=== PATIENT | female | born 1965 ===

== ENCOUNTER 2020-12-08 11:25 | Observation (INO) | payer OTHER, MEDICAID, SELFPAY ==
[2020-12-08] VITALS (7 sets, daily range): BP systolic 109–138; BP diastolic 71–83; PULSE 65–80; RESP 11–20; TEMP 36.4–37.1; O2SAT 96–100; BMI 21.4
--- NOTE | 2020-12-08 11:44 | DI.RAD.S_ITS ---
PROCEDURE: XR WRIST RT MIN 3V INDICATIONS: fall FOOSH/ +deformity TECHNIQUE: 4 views of the wrist were acquired. COMPARISON: Located Within [facility], CR, XR HAND RT MIN 3V, 12/08/2020, 11:46. FINDINGS: Bones: Intact surgical hardware in the distal radius from remote ORIF with no evidence of hardware failure or loosening. No fractures or dislocations. Old ulnar styloid avulsion No suspicious bony lesions. Scaphoid view: Scaphoid suboptimally visualized own scaphoid view. Grossly intact. Soft tissues: No suspicious soft tissue calcifications. IMPRESSION: 1. No evidence acute fracture or dislocation. 2. Scaphoid suboptimally visualized, grossly intact. 3. Intact surgical hardware. Dictated by: Wesley Chaney M.D. on 12/08/2020 at 11:21 Approved by: Wesley Chaney M.D. on 12/08/2020 at 11:23
--- NOTE | 2020-12-08 11:44 | DI.RAD.S_ITS ---
PROCEDURE: XR HAND RT MIN 3V INDICATIONS: fall FOOSH/ +deformity TECHNIQUE: 3 views of the hand(s) acquired. COMPARISON: None. FINDINGS: Bones: No fractures or dislocations. The superior aspect distal radial hardware is visualized. Carpal bones are normally aligned. No suspicious bony lesions. Soft tissues: No suspicious soft tissue calcifications. IMPRESSION: No evidence of acute fracture or dislocation of the right hand. Dictated by: Wesley Chaney M.D. on 12/08/2020 at 11:25 Approved by: Wesley Chaney M.D. on 12/08/2020 at 11:25
--- NOTE | 2020-12-08 11:44 | DI.RAD.S_ITS ---
PROCEDURE: XR WRIST LT MIN 3V INDICATIONS: fall FOOSH/ +deformity TECHNIQUE: 3 views of the wrist were acquired. COMPARISON: None. FINDINGS: Bones: Markedly comminuted distal radius fracture extending to the articular surface with dorsal angulation. Markedly comminuted distal ulnar fracture extending to the articular surface. No dislocation. No suspicious bony lesions. Soft tissues: No suspicious soft tissue calcifications. IMPRESSION: Markedly comminuted distal radius and ulna fractures extending to the articular surface. Dictated by: Wesley Chaney M.D. on 12/08/2020 at 11:23 Approved by: Wesley Chaney M.D. on 12/08/2020 at 11:24
--- NOTE | 2020-12-08 11:47 | PC.NURSE ---
Fall down 2 steps while taking something off a shelf. FOOSH with +deformity to L wrist with 1-2 cm superficial LAC to L wrist. cleaned and wrapped in triage. in shoulder sling. abrasions to R cheek and shoulder, mild swelling and pain to R hand. pending XR's given ice
[2020-12-08] MEDS: ACETAMINOPHEN 325 MG TABLET 975 MG PO (12:12)
--- NOTE | 2020-12-08 13:07 | ED.TRAUMA ---
HPI - Trauma General Chief Complaint: Extremity Injury, Upper Stated Complaint: Fall Time Seen by Provider: 12/08/20 13:07 Source: patient Mode of arrival: Ambulatory Limitations: no limitations History of Present Illness HPI narrative: This is a 55-year-old female comes emergency department after falling approximately 3 ft. Patient states she fell down words, she did scrape her face but denies any other head injury, neck or back pain. Patient has significant pain in her left wrist. She also has a as well as some mild bleeding. Patient states she has some discomfort in her right wrist but is able to use it and move it. She states it feels tight. She feels some pins and needle sensation in her left hand. Patient denies any other medical issues. No daily medications. She states she is unsure of her tetanus is up-to-date. Patient states she has fractured her left wrist in the past as well as had surgery on her left thumb. She has also had fracture and repair on her right wrist in the past. Patient denies any her symptoms currently. Related Data Previous Rx's Medication Instructions Recorded hydrocodone-acetaminophen 1 tab PO Q4-6H PRN #30 tab 12/08/20 sulfamethoxazole-trimethoprim 2 tab PO BID #10 tab 12/08/20 Allergies Allergy/AdvReac Type Severity Reaction Status Date / Time Penicillins Allergy Verified 12/08/20 11:43 Review of Systems Review of Systems ROS Unobtainable: All systems reviewed & are unremarkable except as noted in HPI and below Patient History Social History household members: significant other Smoking Status: Never smoker alcohol intake: never Exam Narrative Exam Narrative: GEN: Patient appears in mild distress. HEAD: No evidence of trauma, no raccoon/Moore sign. NECK: Nontender, painless range of motion, trachea midline Negative Nexus criteria, there is no line tenderness, distracting injury, altered mental status, neuro deficit, recent EtOH. EYES: PERRLA, EOMI ENT: External inspection normal except for abrasion on the right cheek, trachea is midline, TM's are normal no hemotypanum, Nares are clear, no septal hematoma, no dental or oral injury, airway is normal and with normal occlusion, No bony tenderness RESP: Chest is nontender and has symmetric movement, no ecchymosis, breath sounds are normal no crackles, wheezes or rales CVS: Heart sounds are normal, no murmur noted, No JVD. ABG/GI: Nontender, soft, normal bowel sounds, no distention, no organomegaly, pelvic rock is negative NEURO: Oriented AOx3, neuro is grossly intact, sensation and motor is normal all 4 extremities moving, cranial nerves II through XII are intact, GCS is 15 PSYCH: Normal mood and affect SKIN: Patient has a half to 1 cm laceration over radial side of nurse at the wrist there is no obvious bony exposure at this time there is some very mild bleeding that easily stopped with compression, warm and dry, no crepitus and without decubitus BACK: No CVA tenderness, no vertebral tenderness, no step-off's, no crepitus EXT: Patient has obvious deformity of her left wrist, she has cap refill less than 2 seconds with 2+ radial pulse. Right wrist patient has some mild discomfort but has full range of motion with no discrete bony tenderness on exam. No pedal edema, normal color and temperature, normal range of motion of extremities with normal tendon exam, 2+ pulses in all four extremities Initial Vital Signs Initial Vital Signs: Vital Signs Temperature 97.9 F 12/08/20 11:34 Pulse Rate 67 12/08/20 11:34 Respiratory Rate 16 12/08/20 11:34 Blood Pressure 113/74 12/08/20 11:34 Pulse Oximetry 96 12/08/20 11:34 Scores GCS [place] coma scale eye opening: Spontaneous Thomas coma scale verbal response: Orientated [place] coma scale motor response: Obey commands Thomas coma scale total score: 15 Course Orders Ordered: Discontinued Medications Acetaminophen (Acetaminophen 325 Mg Tablet) 975 mg PO NOW ONE Stop: 12/08/20 11:47 Last Admin: 12/08/20 12:12 Dose: 975 mg Documented by: PILAR Acetaminophen (Acetaminophen Susp 160 Mg/5 Ml Udc) 850 mg 15 mg/kg (850 mg) PO NOW ONE Stop: 12/08/20 15:09 Bupivacaine HCl (Bupivacaine 0.5% (Pf) Vial) 30 ml INJ NOW ONE Stop: 12/08/20 16:28 Last Admin: 12/08/20 16:27 Dose: 10 ml Documented by: MITCH Diphtheria/Tetanus/Acell Pertussis (Tet,Diph,Pertuss(Acell),Vac/Pf 0.5 Ml Syringe) 0.5 ml IM .ONCE ONE Stop: 12/08/20 13:18 Last Admin: 12/08/20 13:46 Dose: 0.5 ml Documented by: PILAR Fentanyl (Fentanyl 100 Mcg/2 Ml Inj) 0 mcg IV Q5M PRN PRN Reason: Pain, Moderate (4-6) Hydromorphone HCl (Hydromorphone 2 Mg Inj) 0 mg IV Q5M PRN PRN Reason: Pain, Severe (7-10) Vancomycin HCl (Vancomycin) 1,250 mg in 250 mls @ 250 mls/hr IV NOW ONE Stop: 12/08/20 14:17 Last Admin: 12/08/20 13:50 Dose: 250 mls/hr Documented by: PILAR Lactated Ringer's (Lactated Ringers) 1,000 mls @ 42 mls/hr IV CONT MATTHEW Last Infusion: 12/08/20 17:57 Dose: 0 mls/hr Documented by: Admin: 12/08/20 15:36 Dose: 42 mls/hr Documented by: CHRIS Clindamycin Phosphate (Cleocin) 900 mg in 50 mls @ 50 mls/hr IV NOW ONE Stop: 12/08/20 16:41 Last Infusion: 12/08/20 16:08 Dose: 0 mls/hr Documented by: Admin: 12/08/20 15:55 Dose: 50 mls/hr Documented by: COURTNEY Morphine Sulfate (Morphine 2 Mg/Ml Inj) 2 mg IV NOW ONE Stop: 12/08/20 13:18 Last Admin: 12/08/20 13:50 Dose: 2 mg Documented by: PILAR Ondansetron HCl (Ondansetron 4 Mg/2 Ml Inj) 4 mg IV Q6HR PRN PRN Reason: Nausea And Vomiting Last Admin: 12/08/20 13:50 Dose: 4 mg Documented by: PILAR Ondansetron HCl (Ondansetron 4 Mg/2 Ml Inj) 4 mg IV NOW PRN PRN Reason: Nausea And Vomiting Oxycodone/Acetaminophen (Oxycodone/Acetaminophen 5/325 Tablet) 1 tab PO PACUNOW PRN PRN Reason: Mild or Moderate Pain Consultations Consultation #1: Dr. Mendoza in the department to see the patient. Patient was started on IV antibiotics, tetanus was updated. Patient was splint after wound was washed and nvi afterwards. Dr. Mendoza elect to take patient to OR for operative repair today Vital Signs Vital signs: Vital Signs - 8 hr 12/08/20 11:34 Temperature 97.9 F Pulse Rate 67 Respiratory Rate 16 Blood Pressure 113/74 Pulse Oximetry 96 MDM - Trauma Lab Data Labs: Lab Results 12/08/20 Range/Units 14:00 SARS-CoV-2 (PCR) Negative (Negative) Imaging Data Extremity x-ray #1: Radiologist's Impression: [address] [id number] ReportSigned Patient: Herbert VazquezMR#: [id number]: 1965Acct:[id number]/Sex: 55 / FDate of Service: 12/08/20Loc: EDAccession Number: [id number] Procedure: XR wrist LT min 3V Ordering Provider: Nella Meyers D.O. PROCEDURE: XR WRIST LT MIN 3V INDICATIONS: fall FOOSH/ +deformity TECHNIQUE: 3 views of the wrist were acquired. COMPARISON: None. FINDINGS: Bones: Markedly comminuted distal radius fracture extending to the articular surface with dorsal angulation. Markedly comminuted distal ulnar fracture extending to the articular surface. No dislocation. No suspicious bony lesions. Soft tissues: No suspicious soft tissue calcifications. IMPRESSION: Markedly comminuted distal radius and ulna fractures extending to the articular surface. Dictated by: Wesley Chaney M.D. on 12/08/2020 at 11:23 Approved by: Wesley Chaney M.D. on 12/08/2020 at 11:24 Extremity x-ray #2: Radiologist's Impression: [address] [id number] ReportSigned Patient: Herbert VazquezMR#: [id number]: 1965Acct:[id number]/Sex: 55 / FDate of Service: 12/08/20Loc: EDAccession Number: [id number] Procedure: XR wrist RT min 3V Ordering Provider: Nella Meyers D.O. PROCEDURE: XR WRIST RT MIN 3V INDICATIONS: fall FOOSH/ +deformity TECHNIQUE: 4 views of the wrist were acquired. COMPARISON: [facility], CR, XR HAND RT MIN 3V, 12/08/2020, 11:46. FINDINGS: Bones: Intact surgical hardware in the distal radius from remote ORIF with no evidence of hardware failure or loosening. No fractures or dislocations. Old ulnar styloid avulsion No suspicious bony lesions. Scaphoid view: Scaphoid suboptimally visualized own scaphoid view. Grossly intact. Soft tissues: No suspicious soft tissue calcifications. IMPRESSION: 1. No evidence acute fracture or dislocation. 2. Scaphoid suboptimally visualized, grossly intact. 3. Intact surgical hardware. Dictated by: Wesley Chaney M.D. on 12/08/2020 at 11:21 Approved by: Wesley Chaney M.D. on 12/08/2020 at 11:23 MDM Narrative Medical decision making narrative: This is a 55-year-old female comes emergency department fall. Patient had abrasion on her face but low mechanism terms of head injury. She has a obviously fractured wrist. Patient seen by Orthopedic surgery in the department who took her to the OR today. Discharge Plan Departure Patient Disposition: Admitted to Surgery Clinical Impression: Open fracture of left wrist Admit Date/Time: 12/08/20 14:34 Admit Provider: Dorys Mendoza
[2020-12-08] MEDS: TET,DIPH,PERTUSS(ACELL),VAC/PF 0.5 ML SYRINGE IM (13:46)
[2020-12-08] MEDS: ONDANSETRON 4 MG/2 ML INJ IV (13:50)
[2020-12-08] MEDS: VANCOMYCIN 1,250 MG/250 ML PIGGYBACK 250 MG IV (13:50)
[2020-12-08] MEDS: MORPHINE 2 MG/ML INJ IV (13:50)
--- NOTE | 2020-12-08 14:22 | PC.NURSE ---
assisted nurse with splinting of patient's wrist.
--- NOTE | 2020-12-08 14:23 | PC.NURSE ---
sugar tong placed on left Fx wrist with telfa nonstick pads placed over open wound. held in place with kristina wrap and placed back in patient own sling. Patient reports immediate relief and feels better.
[2020-12-08 15:19] LABS: COVID19 - ADMIT (NP swab/PCR) Negative (Negative)
--- NOTE | 2020-12-08 15:23 | PM.HP.1 ---
History of Present Illness History of Present Illness Date Patient Seen: 12/08/20 Time Patient Seen: 15:02 Date of Onset of Symptoms: 12/08/20 Chief complaint: Fall Narrative: This is 55-year-old [id number] female who was walking today when she fell on both outstretched hands. She noted left greater than right wrist pain. She has a history of a prior right wrist fracture treated with open reduction internal fixation and placement of a plate. Patient History Family & Social History Safety & Behavioral: Feels Safe in Current Yes Environment Been Physically Hurt or No Threatened By a Person Meds Home Medications and Allergies Allergies Allergy/AdvReac Type Severity Reaction Status Date / Time Penicillins Allergy Verified 12/08/20 11:43 Exam Vital Signs (past 8 hours): - 12/08/20 11:34 Temperature 97.9 F Pulse Rate 67 Respiratory Rate 16 Blood Pressure 113/74 Pulse Oximetry 96 Oxygen Delivery Method Room Air Narrative Exam Narrative: She is alert she is oriented HEENT is benign lungs are clear, cor regular rate rhythm, left wrist so is gross deformity with obvious swelling there is a laceration on the anterior aspect of the left wrist which is actively bleeding. She is able to fire her finger flexors and extensors but does note some moderate numbness. Her right upper extremity has a healed volar incision on she has fair range of motion into her wrist notes some slight stiffness and also notes some pain both in her MCP and CMC joint on the right. She has good range of motion in the left elbow she has pretty good range of motion in the left shoulder and it is nontender bilateral lower extremities are benign and her abdomen is benign Objective Labs Labs: Laboratory Results - last 24 hr 12/08/20 14:00 SARS-CoV-2 (PCR) Negative X-rays show a comminuted left distal intra-articular radius fracture which is proximal and significantly displaced with some comminution of her ulnar styloid. She also has a right wrist retained internal fixation with volar plate to has acceptable overall alignment. There is some mild arthritic change at her MCP and CMC joint of her thumbs bilaterally. Assessment & Plan Assessment & Plan narrative: Grade 1 open left distal radius fracture. The plan is for open reduction internal fixation. It is a somewhat more proximal fracture it is comminuted it is displaced. She also has evidence suggestive of a prior left radius fracture in there is some slight comminution also in the region of her ulnar styloid. The plan is for irrigation and debridement and open fixation with a plate and screws. The procedure alternatives risks benefits and complications were discussed in detail. She understands and agrees and we are going to go ahead and proceed with that on an urgent basis.
[2020-12-08] MEDS: LACTATED RINGERS 1,000 ML 42 ML IV (15:36)
[2020-12-08] MEDS: CLINDAMYCIN 900 MG/50 ML PIGGYBACK 50 MG IV (15:55)
--- NOTE | 2020-12-08 16:14 | SUR.HOLD ---
late entry: Block start time [1537] . Monitoring initiated and maintained throughout procedure. Oxygen and medications given per anesthesiologist. Patient remained stable throughout procedure, no adverse reactions noted. Block end time [1547]. Pt transported to OR instable condition.
--- NOTE | 2020-12-08 16:17 | P.PCN_ITS ---
Procedures Date/Time Date of procedure: 12/08/20 Time of procedure: 15:45 General Procedure description: Ultrasound guided supraclavicular brachial plexus nerve block for post op pain control after left wrist ORIF by Dr. Mendoza. Risk and bene fits of procedure discussed with patient. ASA monitoring applied to patient. O2 given via nasal cannula. 2 mg Versed and 50 mcg fentanyl given for procedural sedation. Skin site was prepped with chlorhexidine and allowed to fully dry. Sterile gloves, mask, hat and probe cover were used to maintain sterility. 2% lidocaine and 30ga needle was used to make a small skin wheal at needle insertion site. Under ultrasound guidance, a 21ga 50mm Pajunk needle was directed near the brachial plexus at the subclavian artery. Patient reported no parasthesias. After negative aspiration, 20 mL 0.5% ropivicaine and 10mg dexamethasone were injected around brachial plexus. Patient tolerated procedure well.
--- NOTE | 2020-12-08 16:20 | SUR.OPER ---
Supine on padded OR bed, head on pillow, arms secured on padded arm boards at <90 degrees abduction, legs uncrossed, safety belt at thigh, tape over blanket over lower legs.
[2020-12-08] MEDS: BUPIVACAINE 0.5% (PF) VIAL 30 ML INJ (16:27)
--- NOTE | 2020-12-08 18:45 | SUR.PHASEII ---
Pt up to BR, steady on feet, awaiting ride to come to pick pt up.
--- NOTE | 2020-12-08 18:49 | SUR.PHASEII ---
Pt dressed, awaiting roll picker.
--- NOTE | 2020-12-08 19:00 | P.OP_ITS ---
Operative Date/Time/Diagnoses Date of procedure: 12/08/20 Time of procedure: 16:30 Pre-op diagnosis: Grade 1 open left distal radius and ulnar fracture intra- articular Post-op diagnosis: same Procedure & Clinicians Procedure: ORIF left grade 1 open distal radius and ulnar fracture with excisional debridement of open wound contamination small amount of contaminated fat Same procedure as scheduled: Yes Indications: Is a 55-year-old who fell on her outstretched left hand and sustained a grade 1 open distal radius fracture. She is brought the operating room for irrigation and debridement and open reduction internal fixation. Surgeon: Dorys Mendoza Anesthesia Type: General Operative Notes Findings: Comminuted intra-articular distal radius fracture with gross displacement, acceptable alignment stable fixation plate, grade 1 open fracture with a small amount of contamination of the subcutaneous fat. Closure Type: primary Specimen(s): none sent Prosthetic devices, grafts, tissues, transplants, or devices: Mendoza and nephew distal radius plate with multiple screws Estimated Blood Loss (mL): 100 Blood products transfused: none Procedure in detail: Patient is brought to the operating room. She underwent a time-out. She was given preoperative antibiotics. Her left upper extremity prepped draped in standard sterile fashion after the induction of a general anesthesia. Tourniquet was elevated to 250 mmHg. A radial volar skin incision was made dissection was carried out through skin and subcutaneous tissues. Flexor carpi radialis was meticulously identified and its sheath was incised. She had a small less than 1 cm laceration on the more ulnar aspect of her wrist. The traumatic wound was incised and a small amount of contaminated subcutaneous tissue was excised. It was meticulously irrigated with normal saline. There were no significant foreign bodies. Flexor Gregoria rate carpi radialis was meticulously mobilized. The deep fascia was incised. The muscle was carefully stripped from the distal radius. Fracture was meticulously reduced and fixed with a volar plate with multiple locking screws and additional proximal screws. Anatomic reduction was achieved and stable fixation. Mini C-arm was used to meticulously checked the fracture alignment as well as position of the hardware. The wound was meticulously irrigated with normal saline. Reduction and plate alignment was meticulously checked. The fracture fragments were noted to be adequately aligned. The wound was carefully injected with Marcaine. The wound was closed loosely with interrupted Vicryl and nylon. Xeroform was applied and the wound was dressed sterilely. The patient was placed in a splint. Complications: none Post-operative Condition: stable Disposition: same day surgery Plan for aftercare: Oral antibiotics for 48 hours. Pain medications as needed. Return to clinic in 10-14 days for x-rays out of plaster and probable short-arm cast.
--- NOTE | 2020-12-08 19:49 | SUR.PHASEII ---
Late entry: Ride finally arrived, d/c instructions discussed with both, both voiced an understanding of what was stated. L arm in sling. Pt left when ready and in stable condition.
--- NOTE | 2020-12-12 09:49 | PC.NURSE ---
Late Entry- Vanco dose stopped at 1417 as documented
== END 2020-12-08 19:15 | disposition home or self-care (01) ==
LOC: ED 13:07 → AC 14:38
PROVIDERS: Admitting Provider Orthopaedic Surgery; Emergency Provider Emergency Medicine; Referring Provider Emergency Medicine; Visit Provider Orthopaedic Surgery
PROC: (CPT 25608; principal; 2020-12-08 15:30)
DX: S52.572B Other intraarticular fracture of lower end of left radius, initial encounter for open fracture type I or II (principal); S52.692B Other fracture of lower end of left ulna, initial encounter for open fracture type I or II; W18.30XA Fall on same level, unspecified, initial encounter; Y93.01 Activity, walking, marching and hiking; Z20.822 Contact with and (suspected) exposure to COVID-19
CPT/HCPCS: 25608; 36415; 64450; 73110; 73130; 87635; 90471; 96365; 96375; 99284; C9803; G0378; 90715; J1100; J2250; J2270; J2405; J2704; J3010